=== PATIENT | female | born 1975 | race Asian ===

== ENCOUNTER → 2016-11-05 | Emergency (ER) | payer BC, OTHER ==
[~2016-11-05] VITALS: Ht 162.6 cm; Wt 54.4 kg
[~2016-11-05] MED LIST: ACETAMINOPHEN 325 MG TABLET ONE; ACETAMINOPHEN 325 MG TABLET PO ONE; IBUPROFEN 400 MG TABLET PO ONE
[2016-11-05 11:45] VITALS: BP 122/80
== END | disposition home or self-care (01) ==
LOC: ER 08:15
DX: M79.622 Pain in left upper arm (principal); R51 Headache; J45.909 Unspecified asthma, uncomplicated; Z98.890 Other specified postprocedural states; Z88.0 Allergy status to penicillin
CPT/HCPCS: 70450; 84703; 93005; 99284; A4606; Z7610

== ENCOUNTER 2017-06-14 08:40 | Outpatient (CLI) | payer BC, OTHER ==
[2017-06-14 09:27] LABS: EOSINOPHILS # (AUTO) 0.1 /CMM (0.0-0.7); HEMATOCRIT 43 % (33-45); HEMOGLOBIN 14.4 g/dL (11.5-14.8); LYMPHOCYTES # (AUTO) 1.4 /CMM (0.8-4.8); LYMPHOCYTES % (AUTO) 30.2 % (20.0-44.0); MEAN CORPUSCULAR HEMOGLOBIN 29 PG (26.0-33.0); MEAN CORPUSCULAR HGB CONC 34 g/dl (31.0-36.0); MEAN CORPUSCULAR VOLUME 87 fL (82-100); MONOCYTES # (AUTO) 0.4 /CMM (0.1-1.30); MONOCYTES % (AUTO) 8.5 % (2.0-12.0); NEUTROPHILS # (AUTO) 2.8 /CMM (1.8-8.9); NEUTROPHILS % (AUTO) 58.3 % (43.0-81.0); PLATELET COUNT (AUTO) 253 /CMM (150-450); RDW COEFFICIENT OF VARIATION 12.9 (11.5-15.0); RED BLOOD CELL COUNT(AUTO) 4.91 MIL/uL (4.0-5.2); WHITE BLOOD COUNT (AUTO) 4.8 K/uL (4.3-11.0)
[2017-06-14 09:47] LABS: ALBUMIN 4.3 g/dL (3.4-5.0); BILIRUBIN,TOTAL 0.6 mg/dL (0.2-1.0); CALCIUM, SERUM 9.4 mg/dL (8.5-10.1); CREATININE 0.6 mg/dL (0.6-1.3); MAGNESIUM 1.8 mg/dL (1.8-2.4); POTASSIUM 3.9 mmol/L (3.5-5.1); TOTAL PROTEIN, SERUM 8.3 g/dL (6.4-8.2)
[2017-06-14 09:53] LABS: THYROID STIMULATING HORMONE 0.583 uIU/mL (0.358-3.74)
== END 2017-06-14 23:59 | disposition home or self-care (01) ==
LOC: LAB 08:40
PROVIDERS: ATTEND Family Medicine
DX: M79.671 Pain in right foot (principal); E78.5 Hyperlipidemia, unspecified; E55.9 Vitamin D deficiency, unspecified; R79.89 Other specified abnormal findings of blood chemistry
CPT/HCPCS: 36415; 73650-TC; 80053-TC; 80061-TC; 82306; 83735-TC; 84439-TC; 84443-TC; 84480; 84550-TC; 85025-TC

== ENCOUNTER 2019-01-03 06:30 | Outpatient (CLI) | payer BC, OTHER | END 2019-01-03 23:59 | disposition home or self-care (01) | LOC: MRI 06:30 | PROVIDERS: ATTEND Family Medicine | DX: M75.51 Bursitis of right shoulder (principal) | CPT/HCPCS: 73221-TC ==

== ENCOUNTER 2020-03-06 08:57 | Outpatient (CLI) | payer BC ==
[2020-03-06 10:41] LABS: BASOPHILS # (AUTO) 0.1 /CMM (0.0-0.2); BASOPHILS % (AUTO) 1.2 % (0.0-2.0); EOSINOPHILS % (AUTO) 2.2 % (0.0-6.0); HEMATOCRIT 41 % (33-45); HEMOGLOBIN 13.6 g/dL (11.5-14.8); LYMPHOCYTES # (AUTO) 1.1 /CMM (0.8-4.8); LYMPHOCYTES % (AUTO) 23.9 % (20.0-44.0); MEAN CORPUSCULAR HGB CONC 33 g/dl (31.0-36.0); MEAN CORPUSCULAR VOLUME 87 fL (82-100); MONOCYTES # (AUTO) 0.4 /CMM (0.1-1.30); MONOCYTES % (AUTO) 8.1 % (2.0-12.0); NEUTROPHILS # (AUTO) 2.9 /CMM (1.8-8.9); NEUTROPHILS % (AUTO) 64.6 % (43.0-81.0); PLATELET COUNT (AUTO) 242 /CMM (150-450); RED BLOOD CELL COUNT(AUTO) 4.72 MIL/uL (4.0-5.2); WHITE BLOOD COUNT (AUTO) 4.6 K/uL (4.3-11.0)
[2020-03-06 11:07] LABS: ALBUMIN 3.7 g/dL (3.4-5.0); BILIRUBIN,TOTAL 0.5 mg/dL (0.2-1.0); CALCIUM, SERUM 8.8 mg/dL (8.5-10.1); CREATININE 0.4 mg/dL (0.6-1.3); POTASSIUM 3.9 mmol/L (3.5-5.1)
[2020-03-06 11:11] LABS: THYROID STIMULATING HORMONE 1.045 uIU/mL (0.358-3.74)
== END 2020-03-06 23:59 | disposition home or self-care (01) ==
LOC: US 08:57
PROVIDERS: ATTEND Family Medicine
DX: N94.6 Dysmenorrhea, unspecified (principal); R30.0 Dysuria; D25.9 Leiomyoma of uterus, unspecified
CPT/HCPCS: 36415; 76856-TC; 80053-TC; 80061-TC; 84439-TC; 84443-TC; 85025-TC

== ENCOUNTER 2020-03-16 01:22 | Emergency (ER) | payer BC, OTHER ==
[~2020-03-16] VITALS: Ht 162.6 cm; Wt 59.0 kg
[2020-03-16 01:22] VITALS: BP 132/87
--- NOTE | 2020-03-16 01:53 | NUR ---
COVID TEST SENT TO LAB
== END 2020-03-16 01:54 | disposition home or self-care (01) ==
LOC: ER 01:25
DX: Z03.818 Encounter for observation for suspected exposure to other biological agents ruled out (principal); J45.909 Unspecified asthma, uncomplicated
CPT/HCPCS: 99283; U0003

== ENCOUNTER 2020-04-13 04:08 | Emergency (ER) | payer OTHER ==
[~2020-04-13] VITALS: Ht 162.6 cm; Wt 59.0 kg
[2020-04-13 04:11] VITALS: BP 118/79
--- NOTE | 2020-04-13 04:21 | NUR ---
COVID-19 SWAB SAMPLE TAKEN TO LAB.
--- NOTE | 2020-04-14 22:50 | NUR ---
REC'D NEG RESULTS BY MARY FROM LAB
== END 2020-04-13 04:22 | disposition home or self-care (01) ==
LOC: ER 04:08
DX: Z11.59 Encounter for screening for other viral diseases (principal)
CPT/HCPCS: 99283; C9803; U0003

== ENCOUNTER 2020-04-26 01:51 | Emergency (ER) | payer OTHER ==
[~2020-04-26] VITALS: Ht 162.6 cm; Wt 59.0 kg
--- NOTE | 2020-04-26 02:12 | NUR ---
COVID TEST SENT TO LAB
[2020-04-26 02:20] VITALS: BP 121/72
== END 2020-04-26 02:22 | disposition home or self-care (01) ==
LOC: ER 01:51
DX: Z03.818 Encounter for observation for suspected exposure to other biological agents ruled out (principal)
CPT/HCPCS: 99283; C9803; U0003

== ENCOUNTER 2020-05-11 02:47 | Emergency (ER) | payer OTHER ==
[~2020-05-11] VITALS: Ht 162.6 cm; Wt 59.0 kg
[2020-05-11 02:56] VITALS: BP 131/75
== END 2020-05-11 03:03 | disposition home or self-care (01) ==
LOC: ER 02:50
DX: Z11.59 Encounter for screening for other viral diseases (principal); J45.909 Unspecified asthma, uncomplicated
CPT/HCPCS: 99283; C9803; U0003

== ENCOUNTER 2020-05-17 03:25 | Emergency (ER) | payer OTHER ==
[~2020-05-17] VITALS: Ht 162.6 cm; Wt 59.0 kg
[2020-05-17 03:25] VITALS: BP 128/80
== END 2020-05-17 03:48 | disposition home or self-care (01) ==
LOC: ER 03:31
DX: Z11.59 Encounter for screening for other viral diseases (principal); J45.909 Unspecified asthma, uncomplicated
CPT/HCPCS: 99283; C9803; U0003

== ENCOUNTER 2020-05-25 04:33 | Emergency (ER) | payer OTHER ==
[~2020-05-25] VITALS: Ht 160 cm; Wt 61.2 kg
[2020-05-25 04:36] VITALS: BP 132/78
--- NOTE | 2020-05-25 04:52 | NUR ---
COVID SWAB DONE AND SENT TO LAB.
== END 2020-05-25 04:52 | disposition home or self-care (01) ==
LOC: ER 04:38
DX: Z11.59 Encounter for screening for other viral diseases (principal); J45.909 Unspecified asthma, uncomplicated; Z88.0 Allergy status to penicillin
CPT/HCPCS: 99283; C9803; U0003

== ENCOUNTER 2020-05-31 02:08 | Emergency (ER) | payer OTHER ==
[~2020-05-31] VITALS: Ht 162.6 cm; Wt 59.0 kg
[2020-05-31 02:12] VITALS: BP 122/64
--- NOTE | 2020-05-31 02:34 | NUR ---
COVID SWAB SENT TO LAB
== END 2020-05-31 02:34 | disposition home or self-care (01) ==
LOC: ER 02:08
DX: Z03.818 Encounter for observation for suspected exposure to other biological agents ruled out (principal); J45.909 Unspecified asthma, uncomplicated; Z88.0 Allergy status to penicillin
CPT/HCPCS: 99283; C9803; U0003

== ENCOUNTER 2020-06-07 02:48 | Emergency (ER) | payer OTHER ==
[~2020-06-07] VITALS: Ht 162.6 cm; Wt 59.0 kg
[2020-06-07 02:52] VITALS: BP 128/62
--- NOTE | 2020-06-07 03:12 | NUR ---
COVID SWAB DONE AND SENT TO LAB.
== END 2020-06-07 03:13 | disposition home or self-care (01) ==
LOC: ER 02:48
DX: Z20.828 Contact with and (suspected) exposure to other viral communicable diseases (principal); J45.909 Unspecified asthma, uncomplicated; Z88.0 Allergy status to penicillin
CPT/HCPCS: 99283; C9803; U0003

== ENCOUNTER 2020-06-21 02:25 | Emergency (ER) | payer OTHER ==
[~2020-06-21] VITALS: Ht 162.6 cm; Wt 59.0 kg
[2020-06-21 02:28] VITALS: BP 128/63
--- NOTE | 2020-06-21 02:40 | NUR ---
COVID SWAB DONE AND SENT TO LAB
--- NOTE | 2020-06-21 02:46 | NUR ---
Patient discharged to home in stable condition. Written and verbal after care instructions given. Patient verbalizes understanding of instruction.
== END 2020-06-21 02:48 | disposition home or self-care (01) ==
LOC: ER 02:27
DX: Z20.828 Contact with and (suspected) exposure to other viral communicable diseases (principal); J45.909 Unspecified asthma, uncomplicated; Z87.2 Personal history of diseases of the skin and subcutaneous tissue; Z88.0 Allergy status to penicillin
CPT/HCPCS: 99283; C9803; U0003

== ENCOUNTER 2020-06-28 02:33 | Emergency (ER) | payer OTHER ==
[~2020-06-28] VITALS: Ht 162.6 cm; Wt 59.0 kg
[2020-06-28 02:34] VITALS: BP 118/79
== END 2020-06-28 02:53 | disposition home or self-care (01) ==
LOC: ER 02:33
DX: Z20.828 Contact with and (suspected) exposure to other viral communicable diseases (principal); J45.909 Unspecified asthma, uncomplicated; Z88.0 Allergy status to penicillin
CPT/HCPCS: 99283; C9803; U0003

== ENCOUNTER 2020-07-05 07:42 | Outpatient (CLI) | payer BC ==
[2020-07-05 09:25] LABS: BASOPHILS # (AUTO) 0.1 /CMM (0.0-0.2); EOSINOPHILS % (AUTO) 2.2 % (0.0-6.0); HEMATOCRIT 42 % (33-45); HEMOGLOBIN 13.9 g/dL (11.5-14.8); LYMPHOCYTES # (AUTO) 1.4 /CMM (0.8-4.8); MEAN CORPUSCULAR HGB CONC 33 g/dl (31.0-36.0); MEAN CORPUSCULAR VOLUME 87 fL (82-100); MONOCYTES # (AUTO) 0.5 /CMM (0.1-1.30); MONOCYTES % (AUTO) 8.7 % (2.0-12.0); NEUTROPHILS # (AUTO) 3.7 /CMM (1.8-8.9); NEUTROPHILS % (AUTO) 64.1 % (43.0-81.0); PLATELET COUNT (AUTO) 243 /CMM (150-450); RED BLOOD CELL COUNT(AUTO) 4.82 MIL/uL (4.0-5.2); WHITE BLOOD COUNT (AUTO) 5.8 K/uL (4.3-11.0)
[2020-07-05 09:39] LABS: ALBUMIN 4.2 g/dL (3.4-5.0); BILIRUBIN,TOTAL 0.5 mg/dL (0.2-1.0); CALCIUM, SERUM 8.9 mg/dL (8.5-10.1); CREATININE 0.5 mg/dL (0.6-1.3); POTASSIUM 3.6 mmol/L (3.5-5.1); TOTAL PROTEIN, SERUM 8.2 g/dL (6.4-8.2)
[2020-07-05 09:54] LABS: THYROID STIMULATING HORMONE 1.572 uIU/mL (0.358-3.74); URIC ACID 4.2 mg/dL (2.6-7.2)
== END 2020-07-05 23:59 | disposition home or self-care (01) ==
LOC: LAB 07:42
PROVIDERS: ATTEND Family Medicine
DX: Z00.01 Encounter for general adult medical examination with abnormal findings (principal)
CPT/HCPCS: 36415; 80053-TC; 80061-TC; 82306; 84439-TC; 84443-TC; 84550-TC; 85025-TC

== ENCOUNTER 2020-07-12 02:38 | Emergency (ER) | payer BC, OTHER ==
[~2020-07-12] VITALS: Ht 162.6 cm; Wt 59.0 kg
[2020-07-12 02:38] VITALS: BP 131/75
== END 2020-07-12 02:56 | disposition home or self-care (01) ==
LOC: ER 02:40
DX: Z20.828 Contact with and (suspected) exposure to other viral communicable diseases (principal); J45.909 Unspecified asthma, uncomplicated; Z88.0 Allergy status to penicillin
CPT/HCPCS: 99283; C9803; U0003

== ENCOUNTER 2020-07-19 02:03 | Emergency (ER) | payer OTHER ==
[~2020-07-19] VITALS: Ht 162.6 cm; Wt 59.0 kg
[2020-07-19 02:08] VITALS: BP 127/84
--- NOTE | 2020-07-19 02:13 | NUR ---
COVID SWAB SENT TO LAB
== END 2020-07-19 02:15 | disposition home or self-care (01) ==
LOC: ER 02:04
DX: Z20.828 Contact with and (suspected) exposure to other viral communicable diseases (principal); J45.909 Unspecified asthma, uncomplicated; Z88.0 Allergy status to penicillin
CPT/HCPCS: 99283; C9803; U0003

== ENCOUNTER 2020-07-26 00:52 | Emergency (ER) | payer OTHER ==
[~2020-07-26] VITALS: Ht 162.6 cm; Wt 59.0 kg
[2020-07-26 00:52] VITALS: BP 128/65
== END 2020-07-26 01:00 | disposition home or self-care (01) ==
LOC: ER 00:53
DX: Z20.828 Contact with and (suspected) exposure to other viral communicable diseases (principal); J45.909 Unspecified asthma, uncomplicated; Z88.0 Allergy status to penicillin
CPT/HCPCS: 99283; C9803; U0003

== ENCOUNTER 2020-08-02 01:47 | Emergency (ER) | payer OTHER ==
[~2020-08-02] VITALS: Ht 162.6 cm; Wt 59.0 kg
[2020-08-02 01:49] VITALS: BP 132/64
--- NOTE | 2020-08-02 02:04 | NUR ---
COVID SWAB SENT TO LAB
--- NOTE | 2020-08-03 01:47 | NUR ---
LAB CALLED REGARDING NEGATIVE COVID RESULT.
== END 2020-08-02 02:08 | disposition home or self-care (01) ==
LOC: ER 01:51
DX: Z20.828 Contact with and (suspected) exposure to other viral communicable diseases (principal); J45.909 Unspecified asthma, uncomplicated; Z87.2 Personal history of diseases of the skin and subcutaneous tissue
CPT/HCPCS: 99283; C9803; U0003

== ENCOUNTER 2020-08-08 05:32 | Emergency (ER) | payer OTHER ==
[~2020-08-08] VITALS: Ht 162.6 cm; Wt 59.0 kg
[2020-08-08 05:33] VITALS: BP 135/63
== END 2020-08-08 06:01 | disposition home or self-care (01) ==
LOC: ER 05:32
DX: Z20.828 Contact with and (suspected) exposure to other viral communicable diseases (principal); J45.909 Unspecified asthma, uncomplicated; Z88.0 Allergy status to penicillin
CPT/HCPCS: 99283; C9803; U0003

== ENCOUNTER 2020-08-15 01:56 | Emergency (ER) | payer OTHER ==
[~2020-08-15] VITALS: Ht 162.6 cm; Wt 59.0 kg
[2020-08-15 01:57] VITALS: BP 127/62
--- NOTE | 2020-08-15 02:12 | NUR ---
STEVE COLLECTED AND SENT TO LAB
== END 2020-08-15 02:13 | disposition home or self-care (01) ==
LOC: ER 01:56
DX: Z20.828 Contact with and (suspected) exposure to other viral communicable diseases (principal); J45.909 Unspecified asthma, uncomplicated; Z88.0 Allergy status to penicillin
CPT/HCPCS: 99283; C9803; U0003

== ENCOUNTER 2020-08-22 00:54 | Emergency (ER) | payer OTHER ==
[~2020-08-22] VITALS: Ht 162.6 cm; Wt 59.0 kg
[2020-08-22 00:56] VITALS: BP 132/65
== END 2020-08-22 01:42 | disposition home or self-care (01) ==
LOC: ER 00:55
DX: Z20.828 Contact with and (suspected) exposure to other viral communicable diseases (principal)
CPT/HCPCS: 99283; C9803; U0003

== ENCOUNTER 2020-08-29 03:46 | Emergency (ER) | payer OTHER ==
[~2020-08-29] VITALS: Ht 162.6 cm; Wt 59.0 kg
[2020-08-29 03:47] VITALS: BP 135/61
== END 2020-08-29 04:01 | disposition home or self-care (01) ==
LOC: ER 03:46
DX: Z20.828 Contact with and (suspected) exposure to other viral communicable diseases (principal); Z88.0 Allergy status to penicillin
CPT/HCPCS: 99283; C9803; U0003

== ENCOUNTER 2020-09-06 01:41 | Emergency (ER) | payer OTHER ==
[~2020-09-06] VITALS: Ht 162.6 cm; Wt 61.2 kg
[2020-09-06 01:56] VITALS: BP 118/68
--- NOTE | 2020-09-06 02:06 | NUR ---
Patient discharged to home in stable condition. Written and verbal after care instructions given. Patient verbalizes understanding of instruction.
== END 2020-09-06 02:07 | disposition home or self-care (01) ==
LOC: ER 01:42
DX: Z20.828 Contact with and (suspected) exposure to other viral communicable diseases (principal); J45.909 Unspecified asthma, uncomplicated
CPT/HCPCS: 99283; C9803; U0003

== ENCOUNTER 2020-09-12 01:46 | Emergency (ER) | payer OTHER ==
[~2020-09-12] VITALS: Ht 162.6 cm; Wt 61.2 kg
[2020-09-12 01:47] VITALS: BP 132/62
== END 2020-09-12 01:58 | disposition home or self-care (01) ==
LOC: ER 01:47
DX: Z20.828 Contact with and (suspected) exposure to other viral communicable diseases (principal); J45.909 Unspecified asthma, uncomplicated; Z88.0 Allergy status to penicillin
CPT/HCPCS: 99283; C9803; U0003

== ENCOUNTER 2020-09-12 10:45 | Outpatient (CLI) | payer BC, OTHER | END 2020-09-12 23:59 | disposition home or self-care (01) | LOC: WOU 10:45 | PROVIDERS: ATTEND Surgery | DX: N63.20 Unspecified lump in the left breast, unspecified quadrant (principal); R92.8 Other abnormal and inconclusive findings on diagnostic imaging of breast; I10 Essential (primary) hypertension | CPT/HCPCS: G0463 ==

== ENCOUNTER 2020-09-19 03:48 | Emergency (ER) | payer BC, OTHER ==
[~2020-09-19] VITALS: Ht 162.6 cm; Wt 61.2 kg
[2020-09-19 04:05] VITALS: BP 124/84
== END 2020-09-19 04:10 | disposition home or self-care (01) ==
LOC: ER 03:48
DX: Z20.828 Contact with and (suspected) exposure to other viral communicable diseases (principal); J45.909 Unspecified asthma, uncomplicated; Z88.0 Allergy status to penicillin
CPT/HCPCS: 99283; C9803; U0003

== ENCOUNTER 2020-09-27 03:32 | Emergency (ER) | payer OTHER ==
[~2020-09-27] VITALS: Ht 162.6 cm; Wt 61.2 kg
[2020-09-27 03:32] VITALS: BP 123/75
--- NOTE | 2020-09-27 03:50 | NUR ---
CORTNEYID SWABBED, SENT TO LAB.
== END 2020-09-27 03:51 | disposition home or self-care (01) ==
LOC: ER 03:32
DX: Z20.828 Contact with and (suspected) exposure to other viral communicable diseases (principal); J45.909 Unspecified asthma, uncomplicated; Z87.2 Personal history of diseases of the skin and subcutaneous tissue; Z88.0 Allergy status to penicillin
CPT/HCPCS: 99283; C9803; U0003

== ENCOUNTER 2020-10-03 02:06 | Emergency (ER) | payer OTHER ==
[~2020-10-03] VITALS: Ht 162.6 cm; Wt 61.2 kg
[2020-10-03 02:07] VITALS: BP 124/65
== END 2020-10-03 02:20 | disposition home or self-care (01) ==
LOC: ER 02:08
DX: Z20.828 Contact with and (suspected) exposure to other viral communicable diseases (principal); J45.909 Unspecified asthma, uncomplicated
CPT/HCPCS: 99283; C9803; U0003

== ENCOUNTER 2020-10-10 03:50 | Emergency (ER) | payer OTHER ==
[~2020-10-10] VITALS: Ht 162.6 cm; Wt 61.2 kg
[2020-10-10 03:52] VITALS: BP 132/61
== END 2020-10-10 04:16 | disposition home or self-care (01) ==
LOC: ER 03:50
DX: Z20.828 Contact with and (suspected) exposure to other viral communicable diseases (principal)
CPT/HCPCS: 99283; C9803; U0003

== ENCOUNTER 2020-10-17 02:30 | Emergency (ER) | payer OTHER ==
[~2020-10-17] VITALS: Ht 162.6 cm; Wt 61.2 kg
[2020-10-17 02:32] VITALS: BP 119/87
== END 2020-10-17 02:54 | disposition home or self-care (01) ==
LOC: ER 02:30
DX: Z20.828 Contact with and (suspected) exposure to other viral communicable diseases (principal); J45.909 Unspecified asthma, uncomplicated; Z88.0 Allergy status to penicillin
CPT/HCPCS: 99283; C9803; U0003

== ENCOUNTER 2020-10-19 02:40 | Emergency (ER) | payer OTHER ==
[~2020-10-19] VITALS: Ht 162.6 cm; Wt 61.2 kg
[2020-10-19 02:42] VITALS: BP 132/65
== END 2020-10-19 03:29 | disposition home or self-care (01) ==
LOC: ER 02:41
DX: Z20.828 Contact with and (suspected) exposure to other viral communicable diseases (principal)
CPT/HCPCS: 99283; C9803; U0003

== ENCOUNTER 2020-10-24 02:06 | Emergency (ER) | payer OTHER ==
[~2020-10-24] VITALS: Ht 160 cm; Wt 74.8 kg
[2020-10-24 02:07] VITALS: BP 124/75
== END 2020-10-24 02:28 | disposition home or self-care (01) ==
LOC: ER 02:08
DX: Z20.828 Contact with and (suspected) exposure to other viral communicable diseases (principal)
CPT/HCPCS: 99283; C9803; U0003

== ENCOUNTER 2020-10-26 03:03 | Emergency (ER) | payer OTHER ==
[~2020-10-26] VITALS: Ht 160 cm; Wt 74.8 kg
[2020-10-26 03:08] VITALS: BP 128/69
== END 2020-10-26 03:20 | disposition home or self-care (01) ==
LOC: ER 03:08
DX: Z20.828 Contact with and (suspected) exposure to other viral communicable diseases (principal)
CPT/HCPCS: 99283; C9803; U0003

== ENCOUNTER 2020-10-31 01:56 | Emergency (ER) | payer OTHER ==
[~2020-10-31] VITALS: Ht 160 cm; Wt 74.8 kg
[2020-10-31 01:57] VITALS: BP 132/65
== END 2020-10-31 02:21 | disposition home or self-care (01) ==
LOC: ER 01:56
DX: Z20.822 Contact with and (suspected) exposure to COVID-19 (principal)
CPT/HCPCS: 99283; C9803; U0003

== ENCOUNTER 2020-11-02 02:09 | Emergency (ER) | payer OTHER ==
[~2020-11-02] VITALS: Ht 160 cm; Wt 74.8 kg
[2020-11-02 02:12] VITALS: BP 125/61
== END 2020-11-02 02:23 | disposition home or self-care (01) ==
LOC: ER 02:17
DX: Z20.822 Contact with and (suspected) exposure to COVID-19 (principal); J45.909 Unspecified asthma, uncomplicated; Z88.0 Allergy status to penicillin
CPT/HCPCS: 99283; C9803; U0003

== ENCOUNTER 2020-11-07 01:45 | Emergency (ER) | payer OTHER ==
[~2020-11-07] VITALS: Ht 160 cm; Wt 74.8 kg
[2020-11-07 01:47] VITALS: BP 144/79
== END 2020-11-07 02:16 | disposition home or self-care (01) ==
LOC: ER 01:45
DX: Z20.822 Contact with and (suspected) exposure to COVID-19 (principal); J45.909 Unspecified asthma, uncomplicated; Z88.0 Allergy status to penicillin
CPT/HCPCS: 99283; C9803; U0003

== ENCOUNTER 2020-11-09 03:23 | Emergency (ER) | payer OTHER ==
[~2020-11-09] VITALS: Ht 160 cm; Wt 74.8 kg
[2020-11-09 03:35] VITALS: BP 138/74
== END 2020-11-09 04:02 | disposition home or self-care (01) ==
LOC: ER 03:28
DX: Z20.822 Contact with and (suspected) exposure to COVID-19 (principal); J45.909 Unspecified asthma, uncomplicated; Z88.0 Allergy status to penicillin
CPT/HCPCS: 99283; C9803; U0003

== ENCOUNTER 2020-11-14 02:17 | Emergency (ER) | payer OTHER ==
[~2020-11-14] VITALS: Ht 160 cm; Wt 74.8 kg
[2020-11-14 02:18] VITALS: BP 119/72
--- NOTE | 2020-11-14 02:41 | NUR ---
covid swab sent to lab
== END 2020-11-14 02:41 | disposition home or self-care (01) ==
LOC: ER 02:17
DX: Z20.822 Contact with and (suspected) exposure to COVID-19 (principal)
CPT/HCPCS: 99283; C9803; U0003

== ENCOUNTER 2020-11-16 03:02 | Emergency (ER) | payer OTHER ==
[~2020-11-16] VITALS: Ht 160 cm; Wt 74.4 kg
[2020-11-16 03:03] VITALS: BP 132/69
== END 2020-11-16 04:35 | disposition home or self-care (01) ==
LOC: ER 03:02
DX: Z20.822 Contact with and (suspected) exposure to COVID-19 (principal); J45.909 Unspecified asthma, uncomplicated; Z88.0 Allergy status to penicillin
CPT/HCPCS: 99283; C9803; U0003

== ENCOUNTER 2020-11-21 02:29 | Emergency (ER) | payer OTHER ==
[~2020-11-21] VITALS: Ht 162.6 cm; Wt 56.7 kg
[2020-11-21 02:37] VITALS: BP 135/78
== END 2020-11-21 03:06 | disposition home or self-care (01) ==
LOC: ER 02:33
DX: Z20.822 Contact with and (suspected) exposure to COVID-19 (principal); J45.909 Unspecified asthma, uncomplicated; Z88.0 Allergy status to penicillin
CPT/HCPCS: 99283; C9803; U0003

== ENCOUNTER 2020-11-23 02:08 | Emergency (ER) | payer OTHER ==
[~2020-11-23] VITALS: Ht 162.6 cm; Wt 56.7 kg
[2020-11-23 02:11] VITALS: BP 142/77
== END 2020-11-23 02:50 | disposition home or self-care (01) ==
LOC: ER 02:08
DX: Z20.822 Contact with and (suspected) exposure to COVID-19 (principal); J45.909 Unspecified asthma, uncomplicated; Z88.0 Allergy status to penicillin; R03.0 Elevated blood-pressure reading, without diagnosis of hypertension
CPT/HCPCS: 99283; C9803; U0003

== ENCOUNTER 2020-12-06 01:46 | Emergency (ER) | payer OTHER ==
[~2020-12-06] VITALS: Ht 162.6 cm; Wt 56.7 kg
[2020-12-06 01:48] VITALS: BP 133/85
== END 2020-12-06 02:21 | disposition home or self-care (01) ==
LOC: ER 01:46
DX: Z20.822 Contact with and (suspected) exposure to COVID-19 (principal); J45.909 Unspecified asthma, uncomplicated
CPT/HCPCS: 99283; C9803; U0003

== ENCOUNTER 2020-12-07 01:36 | Emergency (ER) | payer OTHER ==
[~2020-12-07] VITALS: Ht 161.3 cm; Wt 66.7 kg
[2020-12-07 01:43] VITALS: BP 122/61
== END 2020-12-07 02:42 | disposition home or self-care (01) ==
LOC: ER 01:43
DX: Z20.822 Contact with and (suspected) exposure to COVID-19 (principal); J45.909 Unspecified asthma, uncomplicated; Z88.0 Allergy status to penicillin
CPT/HCPCS: 99283; C9803; U0003

== ENCOUNTER 2020-12-12 02:03 | Emergency (ER) | payer OTHER ==
[~2020-12-12] VITALS: Ht 161.3 cm; Wt 66.7 kg
[2020-12-12 02:04] VITALS: BP 133/61
== END 2020-12-12 03:06 | disposition home or self-care (01) ==
LOC: ER 02:03
DX: Z20.822 Contact with and (suspected) exposure to COVID-19 (principal); J45.909 Unspecified asthma, uncomplicated; Z88.0 Allergy status to penicillin
CPT/HCPCS: 99283; C9803; U0003

== ENCOUNTER 2020-12-14 02:02 | Emergency (ER) | payer OTHER ==
[~2020-12-14] VITALS: Ht 161.3 cm; Wt 66.7 kg
[2020-12-14 02:11] VITALS: BP 125/64
== END 2020-12-14 03:07 | disposition home or self-care (01) ==
LOC: ER 02:02
DX: Z20.822 Contact with and (suspected) exposure to COVID-19 (principal); J45.909 Unspecified asthma, uncomplicated; Z88.0 Allergy status to penicillin
CPT/HCPCS: 99283; C9803; U0003

== ENCOUNTER 2020-12-19 01:21 | Emergency (ER) | payer OTHER ==
[~2020-12-19] VITALS: Ht 162.6 cm; Wt 66.7 kg
[2020-12-19 01:23] VITALS: BP 122/66
== END 2020-12-19 01:54 | disposition home or self-care (01) ==
LOC: ER 01:21
DX: Z00.8 Encounter for other general examination (principal); Z20.822 Contact with and (suspected) exposure to COVID-19; J45.909 Unspecified asthma, uncomplicated; Z88.0 Allergy status to penicillin
CPT/HCPCS: 99283; C9803; U0003

== ENCOUNTER 2020-12-26 02:09 | Emergency (ER) | payer OTHER ==
[~2020-12-26] VITALS: Ht 162.6 cm; Wt 66.7 kg
[2020-12-26 02:12] VITALS: BP 119/68
== END 2020-12-26 03:04 | disposition home or self-care (01) ==
LOC: ER 02:09
DX: Z20.822 Contact with and (suspected) exposure to COVID-19 (principal); J45.909 Unspecified asthma, uncomplicated; Z88.0 Allergy status to penicillin
CPT/HCPCS: 99283; C9803; U0003

== ENCOUNTER 2021-01-02 01:59 | Emergency (ER) | payer OTHER ==
[~2021-01-02] VITALS: Ht 162.6 cm; Wt 66.7 kg
[2021-01-02 02:03] VITALS: BP 132/67
== END 2021-01-02 03:11 | disposition home or self-care (01) ==
LOC: ER 02:01
DX: Z20.822 Contact with and (suspected) exposure to COVID-19 (principal); J45.909 Unspecified asthma, uncomplicated
CPT/HCPCS: 99283; C9803; U0003

== ENCOUNTER 2021-01-09 02:54 | Emergency (ER) | payer OTHER ==
[~2021-01-09] VITALS: Ht 162.6 cm; Wt 59.4 kg
[2021-01-09 02:55] VITALS: BP 118/73
== END 2021-01-09 04:06 | disposition home or self-care (01) ==
LOC: ER 02:54
DX: Z20.822 Contact with and (suspected) exposure to COVID-19 (principal); J45.909 Unspecified asthma, uncomplicated; Z88.0 Allergy status to penicillin
CPT/HCPCS: 99283; C9803; U0003

== ENCOUNTER 2021-01-16 03:59 | Emergency (ER) | payer OTHER ==
[~2021-01-16] VITALS: Ht 162.6 cm; Wt 55.8 kg
[2021-01-16 04:03] VITALS: BP 118/73
== END 2021-01-16 04:44 | disposition home or self-care (01) ==
LOC: ER 03:59
DX: Z20.822 Contact with and (suspected) exposure to COVID-19 (principal)
CPT/HCPCS: 99283; C9803; U0003

== ENCOUNTER 2021-01-22 22:44 | Emergency (ER) | payer OTHER ==
[~2021-01-22] VITALS: Ht 162.6 cm; Wt 55.8 kg
[2021-01-22 22:50] VITALS: BP 132/79
== END 2021-01-22 23:19 | disposition home or self-care (01) ==
LOC: ER 22:44
DX: Z20.822 Contact with and (suspected) exposure to COVID-19 (principal); J45.909 Unspecified asthma, uncomplicated
CPT/HCPCS: 99283; C9803; U0003

== ENCOUNTER 2021-01-30 02:59 | Emergency (ER) | payer OTHER ==
[~2021-01-30] VITALS: Ht 162.6 cm; Wt 55.8 kg
[2021-01-30 03:02] VITALS: BP 129/68
== END 2021-01-30 04:06 | disposition home or self-care (01) ==
LOC: ER 02:59
DX: Z20.822 Contact with and (suspected) exposure to COVID-19 (principal); J45.909 Unspecified asthma, uncomplicated; Z88.0 Allergy status to penicillin
CPT/HCPCS: 99283; C9803; U0003

== ENCOUNTER 2021-02-05 23:24 | Emergency (ER) | payer OTHER ==
[~2021-02-05] VITALS: Ht 162.6 cm; Wt 55.8 kg
[2021-02-05 23:25] VITALS: BP 124/64
== END 2021-02-06 00:12 | disposition home or self-care (01) ==
LOC: ER 23:24
DX: Z20.822 Contact with and (suspected) exposure to COVID-19 (principal); J45.909 Unspecified asthma, uncomplicated; Z88.0 Allergy status to penicillin
CPT/HCPCS: 99283; C9803; U0003

== ENCOUNTER 2021-02-13 01:47 | Emergency (ER) | payer OTHER ==
[~2021-02-13] VITALS: Ht 162.6 cm; Wt 55.8 kg
[2021-02-13 01:49] VITALS: BP 132/65
== END 2021-02-13 02:12 | disposition home or self-care (01) ==
LOC: ER 01:47
DX: Z20.822 Contact with and (suspected) exposure to COVID-19 (principal)
CPT/HCPCS: 99283; C9803; U0003

== ENCOUNTER 2021-02-20 02:50 | Emergency (ER) | payer OTHER ==
[~2021-02-20] VITALS: Ht 162.6 cm; Wt 55.8 kg
[2021-02-20 02:51] VITALS: BP 142/80
== END 2021-02-20 03:44 | disposition home or self-care (01) ==
LOC: ER 02:50
DX: Z20.822 Contact with and (suspected) exposure to COVID-19 (principal); J45.909 Unspecified asthma, uncomplicated; Z88.0 Allergy status to penicillin; R03.0 Elevated blood-pressure reading, without diagnosis of hypertension
CPT/HCPCS: 99283; C9803; U0003

== ENCOUNTER 2021-02-27 01:57 | Emergency (ER) | payer OTHER ==
[~2021-02-27] VITALS: Ht 162.6 cm; Wt 55.8 kg
[2021-02-27 01:58] VITALS: BP 134/70
== END 2021-02-27 02:39 | disposition home or self-care (01) ==
LOC: ER 02:07
DX: Z20.822 Contact with and (suspected) exposure to COVID-19 (principal); J45.909 Unspecified asthma, uncomplicated; Z88.0 Allergy status to penicillin
CPT/HCPCS: 99283; C9803; U0003

== ENCOUNTER 2021-03-07 01:26 | Emergency (ER) | payer OTHER ==
[~2021-03-07] VITALS: Ht 162.6 cm; Wt 55.8 kg
[2021-03-07 01:40] VITALS: BP 116/68
== END 2021-03-07 01:55 | disposition home or self-care (01) ==
LOC: ER 01:33
DX: Z20.822 Contact with and (suspected) exposure to COVID-19 (principal); J45.909 Unspecified asthma, uncomplicated; Z88.0 Allergy status to penicillin
CPT/HCPCS: 99283; C9803; U0003

== ENCOUNTER 2021-03-13 03:36 | Emergency (ER) | payer OTHER ==
[~2021-03-13] VITALS: Ht 162.6 cm; Wt 55.8 kg
[2021-03-13 03:38] VITALS: BP 119/72
== END 2021-03-13 04:38 | disposition home or self-care (01) ==
LOC: ER 03:36
DX: Z20.822 Contact with and (suspected) exposure to COVID-19 (principal); J45.909 Unspecified asthma, uncomplicated; Z88.0 Allergy status to penicillin
CPT/HCPCS: 99283; C9803; U0003

== ENCOUNTER 2021-03-20 00:23 | Emergency (ER) | payer OTHER ==
[~2021-03-20] VITALS: Ht 165.1 cm; Wt 55.8 kg
[2021-03-20 00:51] VITALS: BP 122/78
== END 2021-03-20 01:21 | disposition home or self-care (01) ==
LOC: ER 00:23
DX: Z20.822 Contact with and (suspected) exposure to COVID-19 (principal)
CPT/HCPCS: 99283; C9803; U0003

== ENCOUNTER 2021-03-27 03:24 | Emergency (ER) | payer OTHER ==
[~2021-03-27] VITALS: Ht 165.1 cm; Wt 55.8 kg
[2021-03-27 03:29] VITALS: BP 125/79
== END 2021-03-27 05:24 | disposition home or self-care (01) ==
LOC: ER 03:24
DX: Z20.822 Contact with and (suspected) exposure to COVID-19 (principal); J45.909 Unspecified asthma, uncomplicated
CPT/HCPCS: 99283; C9803; U0003

== ENCOUNTER 2021-04-04 02:49 | Emergency (ER) | payer OTHER ==
[~2021-04-04] VITALS: Ht 165.1 cm; Wt 55.8 kg
[2021-04-04 02:50] VITALS: BP 122/62
== END 2021-04-04 03:48 | disposition home or self-care (01) ==
LOC: ER 02:51
DX: Z20.822 Contact with and (suspected) exposure to COVID-19 (principal); J45.909 Unspecified asthma, uncomplicated; Z88.0 Allergy status to penicillin
CPT/HCPCS: 99283; C9803; U0003

== ENCOUNTER 2021-04-11 03:05 | Emergency (ER) | payer OTHER ==
[~2021-04-11] VITALS: Ht 162.6 cm; Wt 55.3 kg
[2021-04-11 03:09] VITALS: BP 113/73
== END 2021-04-11 04:18 | disposition home or self-care (01) ==
LOC: ER 03:13
DX: Z20.822 Contact with and (suspected) exposure to COVID-19 (principal); J45.909 Unspecified asthma, uncomplicated
CPT/HCPCS: 99283; C9803; U0003

== ENCOUNTER 2021-04-17 03:53 | Emergency (ER) | payer OTHER ==
[~2021-04-17] VITALS: Ht 162.6 cm; Wt 55.8 kg
[2021-04-17 03:54] VITALS: BP 123/64
== END 2021-04-17 05:34 | disposition home or self-care (01) ==
LOC: ER 03:53
DX: Z20.822 Contact with and (suspected) exposure to COVID-19 (principal); J45.909 Unspecified asthma, uncomplicated; Z88.0 Allergy status to penicillin
CPT/HCPCS: 99283; C9803; U0003

== ENCOUNTER 2021-11-19 12:09 | Outpatient (CLI) | payer BC | END 2021-11-19 23:59 | disposition home or self-care (01) | LOC: RAD 12:09 | PROVIDERS: ATTEND Family Medicine | DX: R22.1 Localized swelling, mass and lump, neck (principal) | CPT/HCPCS: 71046 ==

== ENCOUNTER 2021-12-10 09:28 | Outpatient (CLI) | payer BC ==
[2021-12-11 08:06] LABS: THYROID PEROXIDASE (TPO) AB <8 IU/mL (0-34)
== END 2021-12-10 23:59 | disposition home or self-care (01) ==
LOC: LAB 09:28
PROVIDERS: ATTEND Family Medicine
DX: E03.9 Hypothyroidism, unspecified (principal)
CPT/HCPCS: 36415; 86376; 86800

== ENCOUNTER 2022-05-01 23:55 | Emergency (ER) | payer OTHER ==
[~2022-05-01] VITALS: Ht 167.6 cm; Wt 61.2 kg
[2022-05-02 00:18] VITALS: BP 135/74
== END 2022-05-02 01:55 | disposition home or self-care (01) ==
LOC: ER 23:57
DX: Z20.822 Contact with and (suspected) exposure to COVID-19 (principal); J45.909 Unspecified asthma, uncomplicated
CPT/HCPCS: 99283; C9803; U0003

== ENCOUNTER 2022-05-29 08:19 | Outpatient (CLI) | payer BC, OTHER ==
[2022-05-29 09:34] LABS: BASOPHILS # (AUTO) 0.1 K/uL (0.0-0.2); BASOPHILS % (AUTO) 1.1 % (0.0-2.0); EOSINOPHILS % (AUTO) 2.3 % (0.0-6.0); HEMATOCRIT 44 % (33-45); HEMOGLOBIN 14.5 g/dL (11.5-14.8); LYMPHOCYTES # (AUTO) 1.4 K/uL (0.8-4.8); LYMPHOCYTES % (AUTO) 25.8 % (20.0-44.0); MEAN CORPUSCULAR HGB CONC 33 g/dl (31.0-36.0); MEAN CORPUSCULAR VOLUME 86 fL (82-100); MONOCYTES # (AUTO) 0.4 K/uL (0.1-1.30); MONOCYTES % (AUTO) 7.9 % (2.0-12.0); NEUTROPHILS # (AUTO) 3.5 K/uL (1.8-8.9); NEUTROPHILS % (AUTO) 62.9 % (43.0-81.0); PLATELET COUNT (AUTO) 267 K/uL (150-450); RED BLOOD CELL COUNT(AUTO) 5.08 MIL/uL (4.0-5.2); WHITE BLOOD COUNT (AUTO) 5.6 K/uL (4.3-11.0)
[2022-05-29 09:37] LABS: BILIRUBIN,URINE NEGATIVE (NEGATIVE); COLOR,URINE YELLOW (YELLOW); LEUKOCYTE ESTERASE ,URINE LARGE (NEGATIVE); NITRITE, URINE NEGATIVE (NEGATIVE); PH,URINE 7.5 (5.0-8.0); PROTEIN,URINE NEGATIVE (NEGATIVE); UGLUCOSE NEGATIVE (NEGATIVE); UROBILINOGEN,URINE 0.2 EU/dL (0.2)
[2022-05-29 10:01] LABS: BACTERIA,URINE Few /HPF (None Seen); RBC,URINE 0-2 /HPF (0-2); SQUAMOUS EPITHELIAL CELL,UR Rare /HPF (None Seen)
[2022-05-29 10:06] LABS: THYROID STIMULATING HORMONE 1.859 uIU/mL (0.358-3.74); URIC ACID 4.6 mg/dL (2.6-7.2)
[2022-05-29 10:14] LABS: ALBUMIN 4.5 g/dL (3.4-5.0); BILIRUBIN,TOTAL 0.6 mg/dL (0.2-1.0); CALCIUM, SERUM 9.3 mg/dL (8.5-10.1); CREATININE 0.6 mg/dL (0.6-1.3); MAGNESIUM 2.2 mg/dL (1.8-2.4); POTASSIUM 4.4 mmol/L (3.5-5.1); TOTAL PROTEIN, SERUM 8.6 g/dL (6.4-8.2)
[2022-05-29 15:02] LABS: FREE T4 (FREE THYROXINE) 1.01 ng/dL (0.76-1.46)
[2022-05-30 09:06] LABS: T3, FREE 3.6 pg/mL (2.0-4.4)
== END 2022-05-29 23:59 | disposition home or self-care (01) ==
LOC: LAB 08:19
PROVIDERS: ATTEND Family Medicine
DX: E78.5 Hyperlipidemia, unspecified (principal); E55.9 Vitamin D deficiency, unspecified; Z79.899 Other long term (current) drug therapy
CPT/HCPCS: 36415; 80053-TC; 80061-TC; 81001; 82306; 82607-TC; 82728-TC; 83540-TC; 83735-TC; 84439-TC; 84443-TC; 84481; 84550-TC; 85025-TC; 87086-TC

== ENCOUNTER 2022-05-29 08:22 | Outpatient (CLI) | payer OTHER | END 2022-05-29 23:59 | disposition home or self-care (01) | LOC: RAD 08:22 | PROVIDERS: ATTEND Family Medicine | DX: M25.541 Pain in joints of right hand (principal); M25.542 Pain in joints of left hand | CPT/HCPCS: 73130-TC ==

== ENCOUNTER 2023-07-21 09:51 | Outpatient (CLI) | payer BC, OTHER ==
[2023-07-21 10:26] LABS: APPEARANCE,URINE CLEAR (CLEAR); BILIRUBIN,URINE NEGATIVE (NEGATIVE); BLOOD, URINE NEGATIVE Ery/uL (NEGATIVE); COLOR,URINE YELLOW (YELLOW); KETONES,URINE NEGATIVE (NEGATIVE); LEUKOCYTE ESTERASE ,URINE NEGATIVE (NEGATIVE); NITRITE, URINE NEGATIVE (NEGATIVE); PROTEIN,URINE NEGATIVE (NEGATIVE); UGLUCOSE NEGATIVE (NEGATIVE); UROBILINOGEN,URINE 0.2 EU/dL (0.2)
== END 2023-07-21 23:59 | disposition home or self-care (01) ==
LOC: LAB 09:51
PROVIDERS: ATTEND Family Medicine
DX: Z01.812 Encounter for preprocedural laboratory examination (principal)

== ENCOUNTER 2024-12-28 10:40 | Emergency (ER) | payer BC, OTHER ==
[~2024-12-28] VITALS: Ht 162.6 cm; Wt 62.1 kg
[2024-12-28 10:59] VITALS: BP 154/84; TEMP 97.9
[2024-12-28] MEDS ORDERED: ERYT3.5O9 RIGHTEYE (12:15)
[2024-12-28 12:22] VITALS: O2SAT 99
== END 2024-12-28 12:23 | disposition home or self-care (01) ==
LOC: ER 10:51
DX: H11.31 Conjunctival hemorrhage, right eye (principal); J45.909 Unspecified asthma, uncomplicated; Z88.0 Allergy status to penicillin

== ENCOUNTER 2025-08-22 16:05 | Emergency (ER) | payer BC, OTHER ==
[~2025-08-22] VITALS: Ht 162.6 cm; Wt 62.1 kg
[~2025-08-22 16:05] MED LIST changes: -ACETAMINOPHEN 325 MG TABLET ONE; -ACETAMINOPHEN 325 MG TABLET PO ONE; +ERYT3.5O9 RIGHTEYE; -IBUPROFEN 400 MG TABLET PO ONE
[2025-08-22] MEDS ORDERED: KETOROLAC TROMETHAMINE 15 MG/ML VIAL ONE (16:32)
[2025-08-22] MEDS ORDERED: FAMOTIDINE/PF INJ 20 MG/2 ML VIAL IV ONE (16:32)
[2025-08-22] MEDS ORDERED: MAG HYDROX/AL HYDROX/SIMETH 30 ML UDC ONE (16:32)
[2025-08-22] MEDS ORDERED: LIDOCAINE VISCOUS 2% UD 15 ML UDC ONE (16:32)
[2025-08-22] MEDS: FAMOTIDINE/PF INJ 20 MG/2 ML VIAL IV ONE ×2 (16:39→16:57)
[2025-08-22 16:40] LABS: PLATELET COUNT (AUTO) 263 K/uL (150-450); RED BLOOD CELL COUNT(AUTO) 4.98 MIL/uL (4.0-5.2); RED CELL DISTRIBUTION WIDTH 13.6 % (11.5-15.0); WHITE BLOOD COUNT (AUTO) 17.0 K/uL (4.3-11.0)
[2025-08-22] MEDS: KETOROLAC TROMETHAMINE 15 MG/ML VIAL IV ONE (16:40)
[2025-08-22] MEDS: MAG HYDROX/AL HYDROX/SIMETH 30 ML UDC PO ONE (16:40)
[2025-08-22] MEDS: LIDOCAINE VISCOUS 2% UD 15 ML UDC MM ONE (16:40)
[2025-08-22 16:46] LABS: CALCIUM, SERUM 9.0 mg/dL (8.5-10.1); CREATININE 0.6 mg/dL (0.6-1.3); SODIUM SERUM 136.0 mmol/L (136-145); UREA NITROGEN, BLOOD 16.0 mg/dL (7-18)
[2025-08-22 16:52] LABS: ASPARTATE AMINOTRANSFERASE 22.0 U/L (15-37); TOTAL PROTEIN, SERUM 8.3 g/dL (6.4-8.2)
[2025-08-22 17:12] LABS: APPEARANCE,URINE SLIGHTLY CLOUDY (CLEAR); BLOOD, URINE 1+ Ery/uL (NEGATIVE); LEUKOCYTE ESTERASE ,URINE 2+ (NEGATIVE); NITRITE, URINE NEGATIVE (NEGATIVE); UGLUCOSE NEGATIVE (NEGATIVE)
[2025-08-22] MEDS ORDERED: NITR100C11 PO (17:33)
[2025-08-22] MEDS ORDERED: ONDA4TAB5 PO (17:33)
[2025-08-22 17:41] LABS: ADD URINE CULTURE YES
[2025-08-22 17:45] LABS: SQUAMOUS EPITHELIAL CELL,UR Many /HPF (None Seen)
[2025-08-22 17:51] VITALS: BP 110/66; TEMP 98; O2SAT 98
== END 2025-08-22 17:51 | disposition home or self-care (01) ==
LOC: ER 16:08
DX: K29.70 Gastritis, unspecified, without bleeding (principal); N39.0 Urinary tract infection, site not specified; J45.909 Unspecified asthma, uncomplicated; Z88.0 Allergy status to penicillin
CPT/HCPCS: 99285; 96374; 76705; 96375; 85025; 80048; 87086; 83690; 80076; 81001; 36415; J1885; J1308